=== PATIENT | female | born 1940 | race Caucasian/White ===

== ENCOUNTER 2016-08-17 08:42 | Emergency (ER) | payer OTHER, BC ==
[~2016-08-17] VITALS: Ht 157.5 cm; Wt 61.2 kg
[2016-08-17 08:42] VITALS: BP_SYST 132
[~2016-08-17 08:42] MED LIST: ACT35 PO; ASPI81TA2 PO; ATEN-167 PO; SYN75 PO; URSO500T9 PO
[2016-08-17] MEDS ORDERED: ONDANSETRON 4 MG ODT TAB PO ONE (09:45)
[2016-08-17] MEDS ORDERED: IBUPROFEN 600 MG TABLET PO ONE (09:45)
[2016-08-17 10:19] VITALS: BP_SYST 130
== END 2016-08-17 10:19 | disposition home or self-care (01) ==
LOC: SED 08:42
DX: M25.561 Pain in right knee (principal); I10 Essential (primary) hypertension; I25.10 Atherosclerotic heart disease of native coronary artery without angina pectoris; Z86.19 Personal history of other infectious and parasitic diseases; Z86.73 Personal history of transient ischemic attack (TIA), and cerebral infarction without residual deficits; Z95.1 Presence of aortocoronary bypass graft; Z79.82 Long term (current) use of aspirin; Z90.49 Acquired absence of other specified parts of digestive tract; Z88.5 Allergy status to narcotic agent
CPT/HCPCS: 73564; 99284; Q0162